=== PATIENT | male | born 1985 | race American Indian/Alaskan Native ===

== ENCOUNTER 2017-03-11 07:12 | Emergency (ER) | payer SELFPAY ==
[2017-03-11 07:32] VITALS: BP 128/78
[2017-03-11] MEDS ORDERED: DUONEB 0.5 MG-3 MG/3 ML SOLN IH ONE ×2 (07:32→12:41)
--- NOTE | 2017-03-11 14:31 | XRay Report ---
ROUTINE CHEST, TWO VIEWS: History: Wheezing/shortness of breath. PA and lateral views demonstrate the heart and mediastinal contour to be of normal size and shape. The lungs are clear and fully expanded and the soft tissues and bony structures are normal. IMPRESSION: Normal study.
--- NOTE | 2017-03-13 07:30 | Emergency Department Report ---
Entered by ROME ALDRICH, acting as scribe for FRIDA BAIRD NP. ED Asthma HPI - General Chief Complaint: Adult Asthma Stated Complaint: ASTHMA (WHEEZING) Time Seen by Provider: 03/11/17 12:22 Source: patient Mode of arrival: Ambulatory Limitations: No Limitations - History of Present Illness Initial Comments: 31 y/o male non-toxic, well nourished, no acute signs of distress, presents after an "asthma attack" that occurred earlier today while at work at [employer]. Sx include non-productive cough, wheezing and throat drainage, but pt denies fever , SOB, difficulty breathing ,chest pain, chills, n/v or abd pain. Patient stated has run out of his medications for asthma has been prescribed. This medications include albuterol inhaler and Advair 250. Patient denies taking these medications during the asthma attack due to no refill. Pt also notes having seasonal allergies. Patient denies have a PCP. MD Complaint: "asthma attack" -: This morning Asthma History: history of frequent attac Severity: mild Context: other (didnt have medication while at work) Associated Symptoms: dry cough. denies: productive cough, fever, chest pain, hemoptysis, leg edema, syncope Treatments Prior to Arrival: other (none) - Related Data Current Asthma Therapy: other (albuterol inhaler and Advair) Previous Rx's Medication Instructions Recorded Last Taken Type Loratadine [Claritin] 10 mg PO DAILY #30 tablet 02/29/16 Unknown Rx Albuterol Sulfate [Ventolin HFA] 2 puff IH Q4H PRN #1 hfa.aer.ad 04/04/16 Unknown Rx predniSONE [Deltasone] 20 mg PO QDAY #5 tab 04/04/16 Unknown Rx ALBUTEROL Inhaler [ProAir HFA 1 puff IH PRN #1 inha 03/11/17 Unknown Rx Inhaler] Fluticasone/Salmeterol [Advair 1 each IH BID #1 blst.w.dev 03/11/17 Unknown Rx 250-50 Diskus] Prednisone [predniSONE] 40 mg PO QDAY 5 Days 03/11/17 Unknown Rx Allergies Allergy/AdvReac Type Severity Reaction Status Date / Time No Known Allergies Allergy Verified 02/29/16 10:06 ED Review of Systems Comment: All other systems reviewed and negative Constitutional: denies: chills, fever ENT: congestion (throat drainage) Respiratory: cough, wheezing. denies: orthopnea, shortness of breath, SOB with exertion, SOB at rest, stridor Cardiovascular: as per HPI. denies: chest pain, palpitations, dyspnea on exertion, orthopnea, edema, syncope, paroxysmal nocturnal dyspnea Endocrine: no symptoms reported Gastrointestinal: denies: abdominal pain, nausea, vomiting, diarrhea Genitourinary: denies: urgency, dysuria Musculoskeletal: denies: back pain, joint swelling, arthralgia Skin: denies: rash, lesions Neurological: denies: headache, weakness, numbness Psychiatric: denies: anxiety, depression Hematological/Lymphatic: denies: easy bleeding, easy bruising ED Past Medical Hx - Past Medical History Previous Medical History?: Yes Hx Asthma: Yes - Surgical History Past Surgical History?: No - Social History Smoking Status: Current Every Day Smoker Substance Use Type: Marijuana - Medications Home Medications: Home Medications Medication Instructions Recorded Confirmed Last Taken Type Loratadine [Claritin] 10 mg PO DAILY #30 tablet 02/29/16 04/04/16 Unknown Rx Albuterol Sulfate [Ventolin HFA] 2 puff IH Q4H PRN #1 hfa.aer.ad 04/04/16 Unknown Rx predniSONE [Deltasone] 20 mg PO QDAY #5 tab 04/04/16 Unknown Rx ALBUTEROL Inhaler [ProAir HFA 1 puff IH PRN #1 inha 03/11/17 Unknown Rx Inhaler] Fluticasone/Salmeterol [Advair 1 each IH BID #1 blst.w.dev 03/11/17 Unknown Rx 250-50 Diskus] Prednisone [predniSONE] 40 mg PO QDAY 5 Days 03/11/17 Unknown Rx ED Physical Exam - General Limitations: No Limitations General appearance: alert, in no apparent distress - Head Head exam: Present: atraumatic, normocephalic - Eye Eye exam: Present: normal appearance, PERRL, EOMI - ENT ENT exam: Present: normal exam, normal orophraynx, mucous membranes moist, TM's normal bilaterally, normal external ear exam - Neck Neck exam: Present: normal inspection, full ROM. Absent: tenderness, meningismus, lymphadenopathy - Respiratory Respiratory exam: Present: wheezes (bilateral wheezing to upper and lower lobes) . Absent: respiratory distress, rales, rhonchi, stridor, chest wall tenderness , accessory muscle use, decreased breath sounds, prolonged expiratory - Cardiovascular Cardiovascular Exam: Present: regular rate, normal rhythm, normal heart sounds - GI/Abdominal GI/Abdominal exam: Present: soft, normal bowel sounds. Absent: tenderness, guarding, rebound - Extremities Exam Extremities exam: Present: normal inspection, full ROM, normal capillary refill. Absent: tenderness, pedal edema, joint swelling, calf tenderness - Back Exam Back exam: Present: normal inspection, full ROM. Absent: tenderness, CVA tenderness (R), CVA tenderness (L), muscle spasm, paraspinal tenderness, vertebral tenderness, rash noted - Neurological Exam Neurological exam: Present: alert, oriented X3, CN II-XII intact, normal gait - Psychiatric Psychiatric exam: Present: normal affect, normal mood - Skin Skin exam: Present: warm, dry, intact, normal color. Absent: rash ED Course Vital Signs 03/11/17 03/11/17 03/11/17 07:29 07:40 07:57 Temperature 98.1 F Pulse Rate 87 Pulse Rate [ 85 101 H Posterior Bilateral Throughout] Respiratory 22 Rate Respiratory 22 20 Rate [Posterior Bilateral Throughout] Blood Pressure 128/78 O2 Sat by Pulse 97 Oximetry 03/11/17 03/11/17 03/11/17 13:08 13:34 13:39 Temperature Pulse Rate 94 H Pulse Rate [ 90 92 H Posterior Bilateral Throughout] Respiratory Rate Respiratory 18 18 Rate [Posterior Bilateral Throughout] Blood Pressure O2 Sat by Pulse 99 Oximetry - Reevaluation(s) Reevaluation #1: 03/11/17 14:05 Peak flow prior DuoNeb is 250. Peak flow post DuoNeb to 280. Reevaluation #2: 03/11/17 14:07 Wheezing has subsided post DuoNeb and Solu-Medrol IM ED Medical Decision Making - Medical Decision Making Ed course: This is a 31-year-old male that presents with exacerbation of asthma. 1- after my Physical exam, patient received DuoNeb in the ED 2 and Solu- Medrol 40 mg IM. 2- peak flow has been obtained prior to DuoNeb with a result of 250. Peak flow obtained post DuoNeb with results of 280. Patient tolerated well with wheezing subside. 3- patient stated he wanted refill of albuterol and Advair. I instructed the importance of having a primary care doctor to monitor patient asthma with proper treatment. Patient stated will get insurance plan next month from his job and will follow-up with his primary care doctor. 4- at the time of discharge patient received albuterol and Advair and prednisone 40 mg by mouth. 5- at the time of discharge the patient does not seem toxic or ill in appearance. No signs of distress noted. Patient received discharge plan of care. No further questions noted by the patient. 6- Chest x-ray was obtained in the ED with normal findings, as per radiologist. ED Disposition Clinical Impression: Exacerbation of asthma Disposition: DISCHARGED TO HOME OR SELFCARE Is pt being admited?: No Does the pt Need Aspirin: No Condition: Stable Instructions: Asthma (ED) Additional Instructions: Follow-up with her primary care doctor in 3-5 days. If symptoms worsen such as difficult to breathing, shortness of breath, chest pain, headache report backed emergency room. Take medication as prescribed. Prescriptions: ALBUTEROL Inhaler [ProAir HFA Inhaler] 1 puff IH PRN #1 inha Fluticasone/Salmeterol [Advair 250-50 Diskus] 1 each IH BID #1 blst.w.dev Prednisone [predniSONE] 40 mg PO QDAY 5 Days Referrals: PRIMARY CAREMD [Primary Care Provider] - 3-5 Days [facility] [Outside] - 3-5 Days [facility] [Outside] - 3-5 Days MILKA FRANKLIN MD [Staff Physician] - 3-5 Days Forms: Work/School Release Form(ED) This documentation as recorded by the ELINOR vail RYAN,accurately reflects the service I personally performed and the decisions made by me,FRIDA BAIRD, FELICE.
== END 2017-03-11 14:38 | disposition home or self-care (01) ==
LOC: ED 07:12
DX: J45.901 Unspecified asthma with (acute) exacerbation (principal); F17.200 Nicotine dependence, unspecified, uncomplicated; F12.10 Cannabis abuse, uncomplicated
CPT/HCPCS: 71020; 94640; 96372; 99283; J2920

== ENCOUNTER 2017-07-13 01:22 | Emergency (ER) | payer SELFPAY ==
[2017-07-13] MEDS ORDERED: HALDOL IM ONE (01:32)
[2017-07-13] MEDS ORDERED: ATIVAN IM ONE (01:32)
[2017-07-13] MEDS ORDERED: HALDOL ONE (01:35)
[2017-07-13] MEDS ORDERED: ATIVAN ONE (01:35)
--- NOTE | 2017-07-13 01:50 | Event Note ---
Date: 07/13/17 Patient is brought back, very agitated, combative, yelling and paranoid. He does not respond to verbal de-escalation techniques, he does not respond to show a force, he is quite paranoid. Appears to be quite psychotic and is obviously a danger to himself and staff members. Jackie Flower ordered, 1013 is signed by myself. Vital Signs 07/13/17 01:25 Temperature 98.3 F Pulse Rate 81 Respiratory 18 Rate Blood Pressure 156/70 Blood Pressure 156/70 [Left] O2 Sat by Pulse 100 Oximetry
--- NOTE | 2017-07-13 01:57 | Emergency Department Report ---
ED Psych HPI - General Chief Complaint: Psych Stated Complaint: WHEEZING/MH Time Seen by Provider: 07/13/17 01:49 Source: patient Mode of arrival: Ambulatory - History of Present Illness Initial Comments: Patient is 31 years old male brought to the ER in acute psychotic episode, patient is aggressive, threatening and paranoid., Associated Psychiatric Symptoms: racing thoughts, delusions - Related Data Previous Rx's Medication Instructions Recorded Last Taken Type Loratadine [Claritin] 10 mg PO DAILY #30 tablet 02/29/16 Unknown Rx Albuterol Sulfate [Ventolin HFA] 2 puff IH Q4H PRN #1 hfa.aer.ad 04/04/16 Unknown Rx predniSONE [Deltasone] 20 mg PO QDAY #5 tab 04/04/16 Unknown Rx ALBUTEROL Inhaler [ProAir HFA 1 puff IH PRN #1 inha 03/11/17 Unknown Rx Inhaler] Fluticasone/Salmeterol [Advair 1 each IH BID #1 blst.w.dev 03/11/17 Unknown Rx 250-50 Diskus] Prednisone [predniSONE] 40 mg PO QDAY 5 Days 03/11/17 Unknown Rx Allergies Allergy/AdvReac Type Severity Reaction Status Date / Time No Known Allergies Allergy Verified 02/29/16 10:06 ED Review of Systems ROS: Stated complaint: WHEEZING/MH Other details as noted in HPI Comment: Unobtainable due to pts medical conditions ED Past Medical Hx - Past Medical History Hx Asthma: Yes - Surgical History Past Surgical History?: No - Social History Smoking Status: Never Smoker Substance Use Type: None - Medications Home Medications: Home Medications Medication Instructions Recorded Confirmed Last Taken Type Loratadine [Claritin] 10 mg PO DAILY #30 tablet 02/29/16 04/04/16 Unknown Rx Albuterol Sulfate [Ventolin HFA] 2 puff IH Q4H PRN #1 hfa.aer.ad 04/04/16 Unknown Rx predniSONE [Deltasone] 20 mg PO QDAY #5 tab 04/04/16 Unknown Rx ALBUTEROL Inhaler [ProAir HFA 1 puff IH PRN #1 inha 03/11/17 Unknown Rx Inhaler] Fluticasone/Salmeterol [Advair 1 each IH BID #1 blst.w.dev 03/11/17 Unknown Rx 250-50 Diskus] Prednisone [predniSONE] 40 mg PO QDAY 5 Days 03/11/17 Unknown Rx ED Physical Exam - General Limitations: No Limitations General appearance: alert, in no apparent distress, other (hostile and aggressive towards staff) - Head Head exam: Present: atraumatic - Eye Eye exam: Present: normal appearance - ENT ENT exam: Present: normal exam - Neck Neck exam: Present: normal inspection - Respiratory Respiratory exam: Present: normal lung sounds bilaterally - Cardiovascular Cardiovascular Exam: Present: regular rate, normal rhythm, normal heart sounds - Neurological Exam Neurological exam: Present: alert, CN II-XII intact, normal gait. Absent: motor sensory deficit - Psychiatric Psychiatric exam: Present: agitated, manic - Skin Skin exam: Present: warm, normal color ED Course Vital Signs 07/13/17 01:25 Temperature 98.3 F Pulse Rate 81 Respiratory 18 Rate Blood Pressure 156/70 Blood Pressure 156/70 [Left] O2 Sat by Pulse 100 Oximetry ED Medical Decision Making - Lab Data Result diagrams: 07/13/17 01:47 07/13/17 01:47 Critical care attestation.: If time is entered above; I have spent that time in minutes in the direct care of this critically ill patient, excluding procedure time. ED Disposition Clinical Impression: Acute psychosis Disposition: [id number]/TX-[id number] PSY HOSP/PSY UNIT Is pt being admited?: No Condition: Stable
[2017-07-13 02:16] LABS: Urine Drugs of Abuse Note Disclamer
[2017-07-13 02:26] LABS: Basophils % (Auto) 0.6 % (0.0-1.8); Hematocrit 45.7 % (35.5-45.6); Hemoglobin 15.3 gm/dl (11.8-15.2); Mean Corpuscular HGB Conc 33 % (32-34); Mean Corpuscular Hemoglobin 28 pg (28-32); Mean Corpuscular Volume 83 fl (84-94); Platelet Count 334 K/mm3 (140-440); Red Blood Count 5.49 M/mm3 (3.65-5.03); Red Cell Distribution Width 13.9 % (13.2-15.2); White Blood Count 9.5 K/mm3 (4.5-11.0)
[2017-07-13 02:38] LABS: Bilirubin,Urine NEG (Negative); Blood,Urine NEG (Negative); Ketones,Urine TR mg/dL (Negative); Leukocyte Esterase,Urine NEG (Negative); Mucus,Urine 1+ /HPF; Nitrite,Urine NEG (Negative); RBC,Urine < 1.0 /HPF (0.0-6.0)
[2017-07-13 02:48] LABS: Anion Gap 34 mmol/L; BUN/Creatinine Ratio 11.87; Blood Urea Nitrogen 19 mg/dL (9-20); Calcium 9.2 mg/dL (8.4-10.2); Carbon Dioxide 14 mmol/L (22-30); Chloride 94.9 mmol/L (98-107); Glucose 116 mg/dL (75-100); Potassium 3.6 mmol/L (3.6-5.0); Sodium 139 mmol/L (137-145)
[2017-07-13] MEDS ORDERED: PROVENTIL IH PRN (05:41)
[2017-07-13] MEDS ORDERED: ADVAIR 250 MCG PO SCH (10:00)
[2017-07-13] MEDS ORDERED: FLONASE NS SCH (10:00)
[2017-07-13] MEDS: PULMICORT IH SCH ×2 (15:03→19:30)
[2017-07-13] MEDS: BROVANA NEBU IH SCH ×2 (15:03→19:30)
--- NOTE | 2017-07-13 16:45 | Consultation ---
History of Present Illness - Reason for Consult Consult date: 07/13/17 Reason for consult: psychiatric evaluation - Chief Complaint Chief complaint: He denied cocaine use. - History of Present Psychiatric Illness Patient is 31 years old male brought to the ER for being aggressive, threatening and paranoid. He is positive for cocaine and marijuana. He provided minimal information but was clear to say he did not use cocaine that he knew of. He admitted to using marijuana. Two attempts to interview him were made. He had a breathing treatment in between these attempts but was not answering questions and had his eyes closed. He received PRN haldol and Ativan earlier in the day. Medications and Allergies Allergies Allergy/AdvReac Type Severity Reaction Status Date / Time No Known Allergies Allergy Verified 02/29/16 10:06 Home Medications Medication Instructions Recorded Confirmed Last Taken Type Albuterol Sulfate [Ventolin HFA] 2 puff IH Q4H PRN #1 hfa.aer.ad 04/04/16 Unknown Rx ALBUTEROL Inhaler [ProAir HFA 1 puff IH PRN #1 inha 03/11/17 07/13/17 Unknown Rx Inhaler] Fluticasone/Salmeterol [Advair 1 each IH BID #1 blst.w.dev 03/11/17 07/13/17 Unknown Rx 250-50 Diskus] Active Meds: Active Medications Albuterol (Proventil) 5 mg IH Q8HR PRN PRN Reason: Shortness Of Breath Stop: 07/18/17 05:40 Arformoterol Tartrate (Brovana Nebu) 15 mcg IH Q12HRT [facility] Last Admin: 07/13/17 15:03 Dose: 15 mcg Budesonide (Pulmicort) 0.5 mg IH Q12HRT [facility] Last Admin: 07/13/17 15:03 Dose: 0.5 mg Past psychiatric history - Past Medical History Past Medical History: other (unable to obtain) - past Psychiatric treatment and history psychiatric treatment history: denies - Social History Social history: other (unable to obtain) Mental Status Exam - Vital signs Last Vital Signs Temp 98.2 F 07/13/17 10:42 Pulse 104 H 07/13/17 15:30 Resp 18 07/13/17 15:30 BP 98/56 07/13/17 10:42 Pulse Ox 100 07/13/17 10:42 - Exam Narrative exam: minimally cooperative drowsy unable to obtain additional information Orientation: person Results Result Diagrams: 07/13/17 01:47 07/13/17 01:47 Abnormal lab results 07/13/17 07/13/17 Range/Units 01:47 01:47 RBC 5.49 H (3.65-5.03) M/mm3 Hgb 15.3 H (11.8-15.2) gm/dl Hct 45.7 H (35.5-45.6) % MCV 83 L (84-94) fl [place] % (Auto) 11.2 H (0.0-7.3) % [place] # 1.1 H (0.0-0.8) K/mm3 Chloride 94.9 L (98-107) mmol/L Carbon Dioxide 14 L (22-30) mmol/L Creatinine 1.6 H (0.8-1.5) mg/dL Glucose 116 H (75-100) mg/dL All other labs normal. Assessment and Plan Assessment and plan: Impression: substance induced psychotic disorder Recommendation: Continue 1013 for now. Reevaluate in 24 hours to determine if psychotic symptoms have resolved. Haldol 5mg q6 hours prn by mouth is available for agitation
[2017-07-13] MEDS ORDERED: HALDOL PO PRN (18:02)
[2017-07-14] MEDS: PULMICORT IH SCH (12:39)
[2017-07-14] MEDS: BROVANA NEBU IH SCH (12:39)
[2017-07-14 12:40] VITALS: BP 120/57
--- NOTE | 2017-07-14 13:20 | Progress Note ---
Subjective - Reason for Consult Consult date: 07/14/17 Reason for consult: Psychiatry Follow-up - Chief Complaint Chief complaint: "I am not crazy" Patient is 31 years old male brought to the ER for being aggressive, threatening , and paranoid. He was positive for cocaine and marijuana on admission. Today patient is calm and cooperative during the assessment. He stated that he came to [facility] because he was having an asthma attack. He stated while in the [facility] area, a man started "masturbating" in front of him and that was upsetting. He stated that may have caused him to be aggressive and paranoid during triage. He did admitted to cocaine and marijuana use prior to his admission to [facility]. He denies a hx of mental illness or a fam hx of mental illness. He stated that he can stop using recreational drugs anytime. He denies using recreational drug to mask any type of Mood DO. He denies SI/HI's, AVH's and depression. He denies an excessive consumption of alcohol (etoh). Patient have not required Haldol PRN since his admission. 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 Today patient is calm and cooperative during the assessment. Psychosis resolved. Positive for marijuana and cocaine. Patient is no threat to self or others. Recommendation: Rescind 1013. Patient given outpatient rehab services for [facility].
== END 2017-07-14 15:44 ==
LOC: ED 01:22 → EEVIPCON 01:22 → ED 07-14 15:44
DX: F23 Brief psychotic disorder (principal); J45.909 Unspecified asthma, uncomplicated
CPT/HCPCS: 36415; 80048; 80307; 81001; 85025; 94640; 96372; 99285; G0480; J1630; J2060; 80320